=== PATIENT | male | born 1940 | race Caucasian/White ===

== ENCOUNTER 2016-08-25 23:31 | Inpatient (IN) | payer OTHER, MEDICARE ==
[~2016-08-25] VITALS: Ht 172.7 cm; Wt 91.4 kg
--- NOTE | ~2016-08-25 | 2DMMODE ---
[facility] [address] [place] [address] 2 D/M-MODE ECHOCARDIOGRAM Name: YOVANI BELLE Room #: 243-P [facility] [place] ..#: [id number] Admission: 08/26/16 Attend Phys: Drake Sanchez, Discharge: Date of : 36 Date of Service: 08/26/16 1034 Report #: [id number] THIS REPORT FOR: //name// APPROVED REPORT Study performed: 08/26/2016 09:39:28 EXAM: Comprehensive 2D, Doppler, and color-flow Echocardiogram Patient Location: ICU Room #: 243 Status: routine Other Information Study Quality: Adequate Indications Diabetes Cardiomyopathy Hypertension/HDD 2D Dimensions RVDd: 36.37 mm LVEF(%): 32.31 (>50%) IVSd: 10.86 (7-11mm) LVOT Diam: 23.78 (18-24mm) LVDd: 48.09 mm PWd: 10.80 (7-11mm) Ascending Ao: 32.48 (22-36mm) LVDs: 40.74 (25-40mm) Aortic Root: 36.84 mm Chairez's LVEF: 32.31 % Volumes Left Atrial Volume (Systole) Single Plane 4CH: 50.77 mL Single Plane 2CH: 47.58 mL LA ESV Index: 29.00 mL/m2 Aortic Valve AoV Peak Jose.: 1.29 m/s AO Peak Gr.: 6.68 mmHg LVOT Max P.71 mmHg LVOT Max V: 0.96 m/s [place] Vmax: 3.31 cm2 Mitral Valve E/A Ratio: 1.0 MV Decel. Time: 240.68 ms MV E Max Jose.: 0.55 m/s [facility] [place] [address] 2 D/M-MODE ECHOCARDIOGRAM Name: BARBRAYOVANI Room #: [address] [place] [address]..#: [id number] Admission: 08/26/16 Attend Phys: Drake Sanchez, Discharge: Date of : 36 Date of Service: 08/26/16 1034 Report #: [id number] MV A Jose.: 0.54 m/s MV PHT: 69.80 ms IVRT: 101.50 ms Pulmonary Valve PV Peak Jose.: 0.91 m/s PV Peak Gr.: 3.32 mmHg Pulmonary Vein P Vein S: 0.45 m/s P Vein A: 0.28 m/s P Vein D: 0.35 m/s P Vein A Dur.: 92.3 msec P Vein S/D Ratio: 1.29 Left Ventricle The left ventricle is normal size. There is normal LV segmental wall motion. There is normal left ventricular wall thickness. Left ventricular systolic function is mild to moderately decreased. LVEF is 40%. This study is not technically sufficient to allow evaluation of the LV diastolic function. Right Ventricle The right ventricle is normal size. The right ventricular systolic function is normal. Atria The left atrium size is normal. Right atrium is at the upper limits of normal. Aortic Valve Aortic valve is calcified. No aortic regurgitation is present. There is no aortic valvular stenosis. Mitral Valve The mitral valve is normal in structure. Trace mitral regurgitation. No evidence of mitral valve stenosis. Tricuspid Valve The tricuspid valve is normal in structure. There is no tricuspid valve regurgitation noted. Pulmonic Valve The pulmonary valve is normal in structure. There is no pulmonic valvular regurgitation. Great Vessels The aortic root is normal in size. IVC is not well visualized. [facility] [address] [id number] 2 D/M-MODE ECHOCARDIOGRAM Name: YOVANI BELLE Room #: 243-P [facility] [place] .#: [id number] Admission: 08/26/16 Attend Phys: Drake Sanchez, Discharge: Date of : 36 Date of Service: 08/26/16 1034 Report #: [id number] Pericardium There is no pericardial effusion. <Conclusion> Left ventricular systolic function is mild to moderately decreased. There is normal LV segmental wall motion. LVEF is 40%. Aortic valve is calcified. No aortic regurgitation or stenosis The mitral valve is normal in structure. Trace mitral regurgitation. Pulmonary artery pressure could not be reliably ascertained There is no pericardial effusion. <ELECTRONICALLY SIGNED> By: Raul Gibbs MD, [facility] 08/26/16 1034 1034 103 Raul Gibbs MD, FAC /INF
--- NOTE | ~2016-08-25 | EKG ---
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 HAMMOND : 1940 Requested By: Raul Gibbs Order Number: [id number] MD: Raul Gibbs Measurements Intervals [place] Rate: 79 P: 52 TX: 238 QRS: -14 QRSD: 117 T: 56 QT: 389 QTc: 447 Interpretive Statements Sinus rhythm Prolonged TX interval Nonspecific intraventricular conduction delay Low voltage, extremity leads No previous ECG available for comparison Electronically Signed On 08-26-2016 18:12:43 CDT by Raul Gibbs [email or web address] <ELECTRONICALLY SIGNED> By: Raul Gibbs MD, [facility] 08/26/16 181 6 6 Raul Gibbs MD, [facility] /EPI
[2016-08-25 23:48] VITALS: BP 85/59
[2016-08-26] VITALS (90 sets, daily range): BP systolic 76–148; BP diastolic 47–110
[2016-08-26 07:08] LABS: HEMATOCRIT 37.7 % (42.0-52.0); HEMOGLOBIN 12.7 gm/dL (14.0-18.0); MCH 31.7 pg (26.0-34.0); MCHC 33.7 g/dL (28.0-37.0); MCV 94.1 fL (80.0-100.0); RDW 13.4 % (10.5-14.5); WBC 9.7 thou/uL (4.0-11.0)
[2016-08-26 11:06] LABS: CALCIUM 7.5 mg/dL (8.5-10.1); CREATININE 1.2 mg/dL (0.7-1.3); POTASSIUM 4.5 mmol/L (3.5-5.1)
[2016-08-26 11:07] LABS: MAGNESIUM 1.2 mg/dL (1.8-2.4)
[2016-08-26 15:29] LABS: ABG SAMPLE TYPE ARTERIAL; BE(vivo) -4.3 mmol/L (-2 to +3); HCO3 19.5 mmol/L (22.0-26.0); LACTATE 0.74 mmol/L (0.5-2.0); O2(CT) 16.5 mL/dL (15.0-23.0); O2Hb 94.7 % (92.0-98.0); PCO2 32.1 mmHg (35.0-45.0); PO2 167.6 mmHg (80.0-100.0); pH 7.402 (7.360-7.450); sO2 99.2 % (92.0-98.0); tCO2 20.5 mmol/L (24.0-30.0)
[2016-08-26 15:30] LABS: ABG COMMENT CMV; STICK SITE R.RADIAL; TIDAL VOLUME 550 ml
[2016-08-26 15:38] LABS: ABG COMMENT CMV; ABG SAMPLE TYPE VENOUS; BE(vivo) -5.8 mmol/L (-2 to +3); HCO3 19.1 mmol/L (22.0-26.0); LACTATE 0.79 mmol/L (0.5-2.0); O2(CT) 12.6 mL/dL (15.0-23.0); O2Hb VENOUS 77.9 (65.0-85.0); PCO2 VENOUS 35.4 mmHg (41.0-51.0); STICK SITE PICC; TIDAL VOLUME 550 ml; sO2 VENOUS 81.3 % (65.0-85.0); tCO2 20.1 mmol/L (24.0-30.0)
[2016-08-26 15:47] LABS: BASOPHILS 0.3 % (0.0-2.0); EOSINOPHILS 8.3 % (0.0-3.0); HEMOGLOBIN 11.8 gm/dL (14.0-18.0); LYMPHOCYTES 9.5 % (24.0-44.0); MCH 32.2 pg (26.0-34.0); MCHC 34.7 g/dL (28.0-37.0); MCV 92.7 fL (80.0-100.0); PLATELET COUNT 270 thou/uL (150-400); POLYS 70.9 % (36.0-66.0); RBC 3.66 mil/uL (4.50-6.00); RDW 13.2 % (10.5-14.5); WBC 9.9 thou/uL (4.0-11.0)
[2016-08-26 15:50] LABS: MANUAL DIFF NO
[2016-08-26] MEDS ORDERED: ASPIR 8181 MG PO (15:51)
[2016-08-26] MEDS ORDERED: FISH OIL 1,001000 M2 PO (15:51)
[2016-08-26] MEDS ORDERED: POTASSIUM20 PO (15:53)
[2016-08-26] MEDS ORDERED: FLOMAX0.4 MG PO (15:54)
[2016-08-26] MEDS ORDERED: LEVOTHYROXIN0.075 MG PO (15:54)
[2016-08-26] MEDS ORDERED: AMITRIPTYLINE H25 M2 PO (15:55)
[2016-08-26] MEDS ORDERED: LISINOPRIL10 MG PO ×2 (15:55→15:57)
[2016-08-26] MEDS ORDERED: CARVEDILOL25 MG PO (15:57)
[2016-08-26 15:59] LABS: CALCIUM 7.2 mg/dL (8.5-10.1); POTASSIUM 4.4 mmol/L (3.5-5.1)
[2016-08-26 16:01] LABS: APTT 32.7 Seconds (24.5-32.8); FIBRINOGEN 443.8 mg/dL (210-360); INR 1.1; PROTIME 11.8 Seconds (9.3-11.4)
[2016-08-26 16:04] LABS: ALBUMIN 1.7 g/dL (3.4-5.0); TOTAL BILIRUBIN 0.5 mg/dL (<0.1-1.0); TOTAL PROTEIN 4.6 g/dL (6.4-8.2)
[2016-08-26 16:31] LABS: ABG COMMENT CMV; ABG SAMPLE TYPE VENOUS; BE(vivo) -6.6 mmol/L (-2 to +3); HCO3 18.7 mmol/L (22.0-26.0); LACTATE 0.76 mmol/L (0.5-2.0); O2Hb VENOUS 77.7 (65.0-85.0); PCO2 VENOUS 36.4 mmHg (41.0-51.0); PO2 VENOUS 48.1 mmHg (35.0-45.0); STICK SITE PICC; TIDAL VOLUME 550 ml; sO2 VENOUS 81.4 % (65.0-85.0); tCO2 19.8 mmol/L (24.0-30.0)
[2016-08-26 16:33] LABS: URINE BILIRUBIN NEGATIVE (Negative); URINE BLOOD NEGATIVE (Negative); URINE COLOR YELLOW; URINE GLUCOSE-RANDOM* NEGATIVE (Negative); URINE KETONES NEGATIVE (Negative); URINE NITRITE NEGATIVE (Negative); URINE PROTEIN (DIPSTICK) TRACE (Negative); URINE SPECIFIC GRAVITY 1.025 (1.003-1.035)
[2016-08-26 17:36] LABS: ABG COMMENT CMV; ABG SAMPLE TYPE VENOUS; BE(vivo) -7.3 mmol/L (-2 to +3); HCO3 17.9 mmol/L (22.0-26.0); LACTATE 0.71 mmol/L (0.5-2.0); O2(CT) 12.3 mL/dL (15.0-23.0); O2Hb VENOUS 82.4 (65.0-85.0); PO2 VENOUS 53.5 mmHg (35.0-45.0); STICK SITE PICC; TIDAL VOLUME 550 ml; sO2 VENOUS 85.7 % (65.0-85.0); tCO2 18.9 mmol/L (24.0-30.0)
[2016-08-26 18:40] LABS: ABG COMMENT CMV; ABG SAMPLE TYPE VENOUS; BE(vivo) -6.2 mmol/L (-2 to +3); HCO3 19.2 mmol/L (22.0-26.0); O2(CT) 11.7 mL/dL (15.0-23.0); PCO2 VENOUS 37.6 mmHg (41.0-51.0); PO2 VENOUS 49.9 mmHg (35.0-45.0); STICK SITE PICC; TIDAL VOLUME 550 ml; sO2 VENOUS 82.9 % (65.0-85.0); tCO2 20.4 mmol/L (24.0-30.0)
[2016-08-26 19:39] LABS: ABG SAMPLE TYPE VENOUS; HCO3 17.6 mmol/L (22.0-26.0); LACTATE 0.64 mmol/L (0.5-2.0); O2(CT) 11.4 mL/dL (15.0-23.0); O2Hb VENOUS 79.8 (65.0-85.0); PCO2 VENOUS 36.3 mmHg (41.0-51.0); PO2 VENOUS 51.4 mmHg (35.0-45.0); sO2 VENOUS 83.3 % (65.0-85.0); tCO2 18.7 mmol/L (24.0-30.0)
[2016-08-26 19:41] LABS: ABG COMMENT CMV; STICK SITE PICC; TIDAL VOLUME 550 ml
[2016-08-26 20:13] LABS: CALCIUM 6.9 mg/dL (8.5-10.1); CREATININE 0.9 mg/dL (0.7-1.3); POTASSIUM 4.3 mmol/L (3.5-5.1)
[2016-08-26 20:19] LABS: APTT 30.3 Seconds (24.5-32.8); FIBRINOGEN 443.8 mg/dL (210-360)
[2016-08-26 20:51] LABS: ABG SAMPLE TYPE VENOUS; BE(vivo) -8.2 mmol/L (-2 to +3); HCO3 17.2 mmol/L (22.0-26.0); O2(CT) 11.1 mL/dL (15.0-23.0); O2Hb VENOUS 80.2 (65.0-85.0); PCO2 VENOUS 34.9 mmHg (41.0-51.0); PO2 VENOUS 51.4 mmHg (35.0-45.0); STICK SITE PICC; TIDAL VOLUME 550 ml; sO2 VENOUS 83.6 % (65.0-85.0); tCO2 18.3 mmol/L (24.0-30.0)
[2016-08-26 20:52] LABS: ABG COMMENT CMV
[2016-08-26 23:48] LABS: CALCIUM 6.9 mg/dL (8.5-10.1); CREATININE 0.9 mg/dL (0.7-1.3); POTASSIUM 4.2 mmol/L (3.5-5.1)
[2016-08-26 23:51] LABS: APTT 33.7 Seconds (24.5-32.8); FIBRINOGEN 415.4 mg/dL (210-360)
[2016-08-27] VITALS (50 sets, daily range): BP systolic 73–164; BP diastolic 38–76
[2016-08-27 05:47] LABS: ABSOLUTE NEUTROPHILS 6.2 thou/uL (1.4-8.2); BASOPHILS 0.4 % (0.0-2.0); EOSINOPHILS 10.2 % (0.0-3.0); HEMATOCRIT 29.6 % (42.0-52.0); HEMOGLOBIN 10.3 gm/dL (14.0-18.0); LYMPHOCYTES 10.7 % (24.0-44.0); MCH 32.1 pg (26.0-34.0); MCHC 34.8 g/dL (28.0-37.0); MCV 92.2 fL (80.0-100.0); MONOCYTES 11.2 % (1.0-8.0); PLATELET COUNT 244 thou/uL (150-400); POLYS 67.5 % (36.0-66.0); RBC 3.21 mil/uL (4.50-6.00); RDW 13.5 % (10.5-14.5); WBC 9.2 thou/uL (4.0-11.0)
[2016-08-27 05:50] LABS: MANUAL DIFF NO
[2016-08-27 05:56] LABS: CALCIUM 7.2 mg/dL (8.5-10.1); CREATININE 0.8 mg/dL (0.7-1.3); MAGNESIUM 1.8 mg/dL (1.8-2.4); POTASSIUM 4.2 mmol/L (3.5-5.1)
[2016-08-28] VITALS (46 sets, daily range): BP systolic 84–133; BP diastolic 44–83
[2016-08-28 06:47] LABS: CALCIUM 7.6 mg/dL (8.5-10.1); CREATININE 0.9 mg/dL (0.7-1.3); POTASSIUM 4.6 mmol/L (3.5-5.1)
[2016-08-28 07:06] LABS: ABSOLUTE NEUTROPHILS 6.5 thou/uL (1.4-8.2); BASOPHILS 0.4 % (0.0-2.0); EOSINOPHILS 9.1 % (0.0-3.0); HEMATOCRIT 36.7 % (42.0-52.0); LYMPHOCYTES 9.9 % (24.0-44.0); MCHC 34.1 g/dL (28.0-37.0); MCV 93.6 fL (80.0-100.0); MONOCYTES 10.1 % (1.0-8.0); PLATELET COUNT 267 thou/uL (150-400); POLYS 70.5 % (36.0-66.0); RBC 3.92 mil/uL (4.50-6.00); RDW 13.4 % (10.5-14.5); WBC 9.2 thou/uL (4.0-11.0)
[2016-08-28 07:07] LABS: HEMOGLOBIN 12.5 gm/dL (14.0-18.0)
[2016-08-28 07:08] LABS: MANUAL DIFF NO
[2016-08-28 08:23] LABS: ABG SAMPLE TYPE ARTERIAL; BE(vivo) -6.9 mmol/L (-2 to +3); HCO3 17.9 mmol/L (22.0-26.0); LACTATE 0.65 mmol/L (0.5-2.0); O2(CT) 15.3 mL/dL (15.0-23.0); PCO2 33.4 mmHg (35.0-45.0); PO2 167.9 mmHg (80.0-100.0); pH 7.346 (7.360-7.450); sO2 99.1 % (92.0-98.0); tCO2 18.9 mmol/L (24.0-30.0)
[2016-08-28 08:24] LABS: STICK SITE R.RADIAL
[2016-08-28 08:25] LABS: Pressure Support 6 cm H20; VDS CPAP TRIAL cc
[2016-08-29] VITALS (20 sets, daily range): BP systolic 100–129; BP diastolic 56–95
[2016-08-30 03:52] VITALS: BP 109/60
[2016-08-30 08:00] VITALS: BP 120/65
[2016-08-30 16:00] VITALS: BP 119/71
[2016-08-30 20:00] VITALS: BP 111/62
[2016-08-31 05:15] VITALS: BP 117/64
[2016-08-31 08:31] VITALS: BP 116/57
[2016-08-31 09:01] LABS: HEMATOCRIT 31.6 % (42.0-52.0); MANUAL DIFF YES; MCHC 34.8 g/dL (28.0-37.0); PLATELET COUNT 234 thou/uL (150-400); RBC 3.44 mil/uL (4.50-6.00); WBC 10.5 thou/uL (4.0-11.0)
[2016-08-31 09:12] LABS: CALCIUM 8.1 mg/dL (8.5-10.1); POTASSIUM 3.5 mmol/L (3.5-5.1); TOTAL BILIRUBIN 0.4 mg/dL (<0.1-1.0); TOTAL PROTEIN 5.7 g/dL (6.4-8.2)
[2016-08-31 10:00] LABS: ABSOLUTE NEUTROPHILS 8.7 thou/uL (1.4-8.2); METAMYELOCYTES 1 %; TOTAL CELL COUNT 100
[2016-08-31 10:01] LABS: ANISOCYTOSIS SLIGHT
[2016-08-31 17:01] VITALS: BP 120/67
[2016-08-31 19:42] VITALS: BP 120/66
[2016-09-01 04:35] VITALS: BP 119/61
[2016-09-01 08:50] VITALS: BP 117/69
[2016-09-01 12:56] VITALS: BP 117/69
[2016-09-01] MEDS ORDERED: AUGMENTIN 875875 MG PO (13:01)
== END 2016-09-01 15:00 | disposition home or self-care (01) | DRG 853 ==
LOC: ICU 23:31 → 4S 08-29 17:47
PROVIDERS: Internal Medicine; Internal Medicine Pulmonary Disease; Nurse Practitioner Family; Specialist; Surgery
PROC: 5A1945Z Respiratory Ventilation, 24-96 Consecutive Hours (ICD-10-PCS; principal; 2016-08-26)
PROC: 02HV33Z Insertion of Infusion Device into Superior Vena Cava, Percutaneous Approach (ICD-10-PCS; 2016-08-26)
PROC: B548ZZA Ultrasonography of Superior Vena Cava, Guidance (ICD-10-PCS; 2016-08-26)
PROC: 0WQFXZZ Repair Abdominal Wall, External Approach (ICD-10-PCS; 2016-08-27)
DX: A41.9 Sepsis, unspecified organism (principal); R65.21 Severe sepsis with septic shock; J96.01 Acute respiratory failure with hypoxia; N17.9 Acute kidney failure, unspecified; K57.00 Diverticulitis of small intestine with perforation and abscess without bleeding; I42.8 Other cardiomyopathies; E87.1 Hypo-osmolality and hyponatremia; K56.5 Intestinal adhesions [bands] with obstruction (postinfection); I50.9 Heart failure, unspecified; E11.9 Type 2 diabetes mellitus without complications; E03.9 Hypothyroidism, unspecified; M19.90 Unspecified osteoarthritis, unspecified site; K66.8 Other specified disorders of peritoneum; I95.81 Postprocedural hypotension; E78.5 Hyperlipidemia, unspecified; K21.9 Gastro-esophageal reflux disease without esophagitis; R19.7 Diarrhea, unspecified; Z90.49 Acquired absence of other specified parts of digestive tract; Z85.46 Personal history of malignant neoplasm of prostate; Z98.49 Cataract extraction status, unspecified eye; Z79.899 Other long term (current) drug therapy
CPT/HCPCS: 10078; 10100; 27000; 50093; 50101; 50386; 51114; 51412; 56525; 56527; 56530; 62110; 62900

== ENCOUNTER → 2019-07-13 | Outpatient (CLI) | payer OTHER, MEDICARE ==
[~2019-07-13] MED LIST: AMITRIPTYLINE H25 M2 PO; ASPIR 8181 MG PO; AUGMENTIN 875875 MG PO; CARVEDILOL25 MG PO; FISH OIL 1,001000 M2 PO; FLOMAX0.4 MG PO; LEVOTHYROXIN0.075 MG PO; LISINOPRIL10 MG PO; POTASSIUM20 PO
== END ==
LOC: SJCVC 10:22
PROVIDERS: ATTEND Internal Medicine
DX: I48.0 Paroxysmal atrial fibrillation (principal); R94.31 Abnormal electrocardiogram [ECG] [EKG]; I42.8 Other cardiomyopathies; I11.0 Hypertensive heart disease with heart failure; I50.22 Chronic systolic (congestive) heart failure; E11.9 Type 2 diabetes mellitus without complications; E78.5 Hyperlipidemia, unspecified; E03.9 Hypothyroidism, unspecified; Z79.899 Other long term (current) drug therapy; Z87.891 Personal history of nicotine dependence

== ENCOUNTER → 2019-10-18 | Outpatient (CLI) | payer OTHER, MEDICARE | LOC: SJCVC 12:55 | PROVIDERS: ATTEND Internal Medicine | DX: I48.21 Permanent atrial fibrillation (principal); R94.31 Abnormal electrocardiogram [ECG] [EKG]; I42.8 Other cardiomyopathies; I11.0 Hypertensive heart disease with heart failure; I50.22 Chronic systolic (congestive) heart failure; E78.5 Hyperlipidemia, unspecified; E11.9 Type 2 diabetes mellitus without complications; Z79.899 Other long term (current) drug therapy; Z87.891 Personal history of nicotine dependence ==

== ENCOUNTER → 2020-04-17 | Outpatient (CLI) | payer OTHER, MEDICARE | LOC: SJCVC 13:22 | PROVIDERS: ATTEND Internal Medicine | DX: R94.31 Abnormal electrocardiogram [ECG] [EKG] (principal); I48.21 Permanent atrial fibrillation; I42.8 Other cardiomyopathies; I11.0 Hypertensive heart disease with heart failure; I50.22 Chronic systolic (congestive) heart failure; E78.5 Hyperlipidemia, unspecified; E11.9 Type 2 diabetes mellitus without complications; E03.9 Hypothyroidism, unspecified; Z87.891 Personal history of nicotine dependence; Z79.899 Other long term (current) drug therapy ==

== ENCOUNTER 2020-05-22 18:06 | Inpatient (IN) | payer OTHER, MEDICARE ==
[~2020-05-22] VITALS: Ht 170.2 cm; Wt 64.7 kg
[2020-05-22 18:19] VITALS: BP 109/63
[2020-05-22 19:14] LABS: ABSOLUTE NEUTROPHILS 5.4 thou/uL (1.4-8.2); BASOPHILS 0.3 % (0.0-2.0); EOSINOPHILS 4.9 % (0.0-3.0); HEMATOCRIT 28.3 % (42.0-52.0); HEMOGLOBIN 9.5 gm/dL (14.0-18.0); LYMPHOCYTES 11.4 % (24.0-44.0); MCHC 33.7 g/dL (28.0-37.0); MCV 97.9 fL (80.0-100.0); MONOCYTES 10.9 % (1.0-8.0); PLATELET COUNT 264 thou/uL (150-400); POLYS 72.5 % (36.0-66.0); RBC 2.89 mil/uL (4.50-6.00); RDW 15.5 % (10.5-14.5); WBC 7.5 thou/uL (4.0-11.0)
[2020-05-22 19:17] LABS: ANION GAP 6 mmol/L (7-16); BUN 15 mg/dL (7-18); CALCIUM 7.9 mg/dL (8.5-10.1); CHLORIDE 105 mmol/L (98-107); CO2 24 mmol/L (21-32); CREATININE 1.2 mg/dL (0.7-1.3); GLUCOSE 97 mg/dL (74-106); POTASSIUM 3.9 mmol/L (3.5-5.1); SODIUM 135 mmol/L (136-145)
[2020-05-22 19:25] LABS: INR 1.25; PROTIME 13.5 Seconds (9.3-11.4)
[2020-05-22 19:27] LABS: ALBUMIN 2.8 g/dL (3.4-5.0); SGOT 20 U/L (15-37); SGPT 25 U/L (16-63); TOTAL BILIRUBIN 0.6 mg/dL (0.2-1.0); TOTAL PROTEIN 6.3 g/dL (6.4-8.2); TROPONIN-I <0.06 ng/mL (<0.06)
[2020-05-22] MEDS ORDERED: LEVO-T75 MCG PO (20:30)
[2020-05-22] MEDS ORDERED: ELIQUIS5 MG PO (20:30)
[2020-05-22] MEDS ORDERED: CARVEDILOL12.5 MG PO (20:30)
[2020-05-22 21:13] VITALS: BP 104/61
[2020-05-22 22:00] VITALS: BP 116/71
[2020-05-22] MEDS ORDERED: ROXICODONE5 MG PO (22:17)
[2020-05-23 03:42] VITALS: BP 92/59
[2020-05-23 05:09] LABS: HEMATOCRIT 26.4 % (42.0-52.0); HEMOGLOBIN 8.6 gm/dL (14.0-18.0); MCH 31.8 pg (26.0-34.0); MCHC 32.6 g/dL (28.0-37.0); MCV 97.3 fL (80.0-100.0); RBC 2.71 mil/uL (4.50-6.00); RDW 15.7 % (10.5-14.5); WBC 5.9 thou/uL (4.0-11.0)
[2020-05-23 05:33] LABS: CALCIUM 7.5 mg/dL (8.5-10.1); POTASSIUM 3.6 mmol/L (3.5-5.1)
--- NOTE | 2020-05-23 06:32 | NUR ---
Arrived from ER around HS with O2 at 2L/NC. Maintaining O2 sat up to 100% but reported he does get short of breath with exertion.Diuresed well from IV lasix. Voided per urinal. He requested sleep med lats night stating he has not slept well in the last couple of nights. NASCAR DRIVER notified and melatonin given to pt. per order. Pt. stated he did not sleep at all despite med. A fib with controlled rate and PVC's per tele. Negative COVID test reported to NASCAR DRIVER and greenhouse transplanter.
--- NOTE | 2020-05-23 07:04 | EKG ---
[address] [place] [place] [address] ELECTROCARDIOGRAM REPORT Name: YOVANI BELLE Room #: 354-P ADM IN M.R.#: [id number] Admission: 05/22/20 Attend Phys: Alonzo Almaguer MD Discharge: Date of : 36 Report #: [id number] [facility] ED Test Date: 2020-05-22 Test Time: 18:49:59 Pat Name: YOVANI BELLE Department: Room: 354 Gender: M Director Reactor Projects: Wade LLANES : 1940 Requested By: Jake Frye Order Number: [id number] MD: Baljeet Judd Measurements Intervals [place] Rate: 90 P: IN: QRS: -43 QRSD: 121 T: 43 QT: 387 QTc: 474 Interpretive Statements Atrial fibrillation Nonspecific IVCD with LAD LVH with secondary repolarization abnormality Inferior infarct, old Compared to ECG 08/26/2016 09:27:54 Left ventricular hypertrophy now present Early repolarization now present Myocardial infarct finding now present Sinus rhythm no longer present First degree AV block no longer present Electronically Signed On 05-23-2020 7:04:04 CDT by Baljeet Judd [email or web address] <ELECTRONICALLY SIGNED> By: Baljeet Judd MD, FAC 05/23/20 0704 1849 1849 Baljeet Judd MD, [facility] /EPI
[2020-05-23 07:28] VITALS: BP 89/57
[2020-05-23 08:19] LABS: % SATURATION 10 % (20-39); IRON 26 ug/dL (65-175); TIBC 254 ug/dL (250-450)
--- NOTE | 2020-05-23 10:09 | NUR ---
ASSUMED CARE OF PT AT 0700 DR. YUAN AT BEDSIDE AT 1000, SHE STOPPED HIS BLOOD THINNER AND IS CONSULTING GI DUE TO HGB DROPPING. PT STATED HE IS STEADY ON HIS FEET, GOT UP TO GO TO THE BATHROOM LAST NIGHT AND IS FEELING MUCH BETTER
--- NOTE | 2020-05-23 11:44 | 2DMMODE ---
[facility] [place] [address] 2 D/M-MODE ECHOCARDIOGRAM Name: YOVANI BELLE Room #: 354-P ADM IN M.R.#: [id number] Admission: 05/22/20 Attend Phys: Alonzo Almaguer MD Discharge: Date of : 36 Report #: [id number] THIS REPORT FOR: cc: Reagan Parmar MD, Samuel D. MD Lundgren, Craig H. MD [facility] ~ APPROVED REPORT Study performed: 05/23/2020 10:26:33 EXAM: Comprehensive 2D, Doppler, and color-flow Echocardiogram Patient Location: Bedside Room #: 354 Status: routine BSA: 1.81 HR: 74 bpm BP: 89/57 mmHg Rhythm: Atrial Fibrillation Other Information Study Quality: Adequate Indications Atrial Fibrillation Hx: CHF, NISCM, HTN, DM. 2D Dimensions RVDd: 39.39 mm IVSd: 9.75 (7-11mm) LVOT Diam: 22.68 (18-24mm) LVDd: 60.04 mm PWd: 12.25 (7-11mm) Ascending Ao: 27.14 (22-36mm) LVDs: 56.42 (25-40mm) Left Atrium: 42.97 (27-40mm) Aortic Root: 32.84 mm Volumes Left Atrial Volume (Systole) Single Plane 4CH: 76.86 mL Single Plane 2CH: 90.09 mL LA ESV Index: 54.00 mL/m2 Aortic Valve AoV Peak Jose.: 1.03 m/s AO Peak Gr.: 4.20 mmHg LVOT Max P.35 mmHg LVOT Max V: 0.58 m/s [facility] [address] [address] 2 D/M-MODE ECHOCARDIOGRAM Name: YOVANI BELLE Room #: 354-P [facility] IN [facility]#: [id number] Admission: 05/22/20 Attend Phys: Alonzo Almaguer MD Discharge: Date of : 36 Report #: [id number] [place] Vmax: 2.29 cm2 Pulmonary Valve PV Peak Jose.: 0.96 m/s PV Peak Gr.: 3.72 mmHg Tricuspid Valve TR Peak Jose.: 2.42 m/s TR Peak Gr.: 23.47 mmHg Left Ventricle Left ventricle is mildly dilated. There is global hypokinesis of the left ventricle. There is normal left ventricular wall thickness. Left ventricular systolic function is moderate to severely decreased. LVEF is 30%. This study is not technically sufficient to allow evaluation of the LV diastolic function due to atrial fibrillation. Right Ventricle The right ventricle is normal size. The right ventricular systolic function is normal. Atria Biatrial enlargement. Aortic Valve The aortic valve is mildly sclerotic. No aortic regurgitation is present. There is no aortic valvular stenosis. Mitral Valve The mitral valve is normal in structure. Mild mitral regurgitation. No evidence of mitral valve stenosis. Tricuspid Valve The tricuspid valve is normal in structure. Trace tricuspid regurgitation. Pulmonic Valve The pulmonary valve is normal in structure. Mild pulmonic regurgitation. Great Vessels The aortic root is normal in size. The ascending aorta is normal in size. IVC is poorly visualized. Pericardium There is no pericardial effusion. Pleural effusion noted. [facility] [address] [place] [address] 2 D/M-MODE ECHOCARDIOGRAM Name: YOVANI BELLE Room #: 354-P [facility] IN [facility].#: [id number] Admission: 05/22/20 Attend Phys: Alonzo Almaguer MD Discharge: Date of : 36 Report #: [id number] <Conclusion> Left ventricular systolic function is moderate to severely decreased. There is global hypokinesis of the left ventricle. LVEF is 30%. Biatrial enlargement. The aortic valve is mildly sclerotic. No aortic regurgitation or stenosis The mitral valve is normal in structure. Mild mitral regurgitation. Pulmonary artery pressure could not be reliably ascertained There is no pericardial effusion. <ELECTRONICALLY SIGNED> By: Raul Gibbs MD, [facility] 05/23/20 1144 1144 1144 Raul Gibbs MD, FACC /INF
--- NOTE | 2020-05-23 12:31 | NUR ---
Case opened to follow for dc planning. Case discussed with the care team, chart reveiwed and jingle writer spoke with the pt's Tatyana via phone (as pt did not answer the room phone). He is in [place] for covid r/o. notes he has had both covid vaccines with the second one being a week ago. They live in [place], [place] and he is normally indep and active. He drives and still does yard work/mowing. He is s/p lap hernia repair from two weeks ago. He is being treated for CHF on iv lasix and GI consult for low hgb. He does not use any dme at home and does not have home o2. The pt's spouse is hoping he will get out of [place] so she can visit and bring him his cell phone perioperative assistant. CM role introduced. Will follow along should dc planning needs arise.
[2020-05-23 15:26] VITALS: BP 101/56
[2020-05-23 19:24] VITALS: BP 92/56
[2020-05-23 19:29] VITALS: BP 102/56
[2020-05-24] VITALS (7 sets, daily range): BP systolic 81–124; BP diastolic 49–64
--- NOTE | 2020-05-24 05:36 | NUR ---
Pt. requested sleep med at . He still can't get comfortable and having a hard time sleeping. He c/o back hurting , tylenol given with good relief. Up ad danae in room with steady gait. He stated this am he slept good for few hours and that made him feel better. Tolerating room air well. Voiding per urinal.
[2020-05-24 07:30] LABS: CREATININE 1.4 mg/dL (0.7-1.3)
[2020-05-24 09:08] LABS: HEMATOCRIT 30.2 % (42.0-52.0)
[2020-05-24 09:43] LABS: ABSOLUTE RETIC COUNT 0.0336 10^6/uL; OBSERVED RETIC COUNT 1.09 % (0.6-2.6)
[2020-05-24 10:47] LABS: FOLIC ACID 28.8 ng/mL (8.6-58.9)
[2020-05-24] MEDS ORDERED: CARVEDILOL3.125 MG PO (11:02)
[2020-05-24] MEDS ORDERED: IRON325 PO (11:02)
[2020-05-24] MEDS ORDERED: PROTONIX 20 MG20 M1 PO (11:02)
[2020-05-24] MEDS ORDERED: DEMADEX20 MG PO (11:11)
--- NOTE | 2020-05-24 15:39 | NUR ---
assumed care of pt at 0700. pt alert and oriented, reports feeling much better. breathing comfortably on room air. hypotensive this am - bp 80/50s. beta blockers held. physician notified of hypotension. albumin given per order w/ 250cc bolus. bp improved - 101/61 - plans for discharge later today. wcm.
--- NOTE | 2020-05-24 15:45 | NUR ---
patient to discharge today with home health ordered. Discussed with patient who does not believe he needs home health. He is agreeable to arrange for discharge. He has had home health in past with [facility] and agreeable for HH referral. Faxed [facility] referral packet and orders. Sp with Ashia in intake they rec information with start of care over weekend. no further needs
--- NOTE | 2020-05-30 13:51 | NUR ---
Note Given: Y Facility List Provided:Y Facility Sharee: None chosen at this time Ilana Woodruff NP discussed BPCI with this pt 05/24/2020
== END 2020-05-24 17:41 | disposition home health service (06) | DRG 291 ==
LOC: ER 18:06 → EROBS 20:19 → 3W 20:19
PROVIDERS: Emergency Medicine; Internal Medicine; Nurse Practitioner Family; ADMIT Hospitalist; ATTEND Hospitalist
DX: I11.0 Hypertensive heart disease with heart failure (principal); J96.00 Acute respiratory failure, unspecified whether with hypoxia or hypercapnia; N17.9 Acute kidney failure, unspecified; I48.21 Permanent atrial fibrillation; I50.43 Acute on chronic combined systolic (congestive) and diastolic (congestive) heart failure; I42.8 Other cardiomyopathies; D64.9 Anemia, unspecified; Z20.822 Contact with and (suspected) exposure to COVID-19; E11.9 Type 2 diabetes mellitus without complications; E78.5 Hyperlipidemia, unspecified; K52.9 Noninfective gastroenteritis and colitis, unspecified; R32 Unspecified urinary incontinence; R63.4 Abnormal weight loss; G47.00 Insomnia, unspecified; R53.81 Other malaise; N40.0 Benign prostatic hyperplasia without lower urinary tract symptoms; E03.9 Hypothyroidism, unspecified; Z79.01 Long term (current) use of anticoagulants; Z08 Encounter for follow-up examination after completed treatment for malignant neoplasm; Z85.46 Personal history of malignant neoplasm of prostate; Z90.49 Acquired absence of other specified parts of digestive tract; Z79.82 Long term (current) use of aspirin; Z87.891 Personal history of nicotine dependence; Z79.899 Other long term (current) drug therapy; Z80.0 Family history of malignant neoplasm of digestive organs; Z98.49 Cataract extraction status, unspecified eye; Z68.22 Body mass index [BMI] 22.0-22.9, adult
CPT/HCPCS: 10879